=== PATIENT | male | born 1975 | race Caucasian/White ===

== ENCOUNTER 2019-11-06 12:25 | Emergency (ER) | payer OTHER, SELFPAY ==
[2019-11-06 12:39] VITALS: BP 134/85; PULSE 83; RESP 19; O2SAT 99; BMI 24.3
--- NOTE | 2019-11-06 12:44 | DI.RAD.S_ITS ---
1PROCEDURE: XR WRIST RT MIN 3V INDICATIONS: trauma to right wrist TECHNIQUE: 4 views of the wrist were acquired. COMPARISON: None. FINDINGS: Bones: No fractures or dislocations. No suspicious bony lesions. Scaphoid view: No navicular fractures are seen. Soft tissues: No suspicious soft tissue calcifications. IMPRESSION: No displaced fractures are seen. If there is snuffbox tenderness (or other clinical suspicion for a fracture not seen on these images) then a repeat examination would be recommended in 10 to 14 days, following splinting. Dictated by: Arthur Ardon M.D. on 11/06/2019 at 12:04 Approved by: Arthur Ardon M.D. on 11/06/2019 at 12:05
[2019-11-06 13:43] VITALS: TEMP 36.1
--- NOTE | 2019-11-06 13:46 | ED_ITS ---
HPI - Extremity Injury (Upper) General Chief Complaint: Extremity Injury, Upper Stated Complaint: Hurt Right Wrist Time Seen by Provider: 11/06/19 13:46 Source: patient Mode of arrival: Family Vehicle Limitations: no limitations History of Present Illness HPI narrative: Patient is a 44-year-old male who presents with right wrist pain. He was running down the [place] with kids when he ran into the door frame. He ini tially thought it was okay but pain worsened overnight. He has limited range of motion due to pain. He has taken some ibuprofen he denies any numbness or tingling. He is left-hand dominant MD complaint: injury to: right and wrist Onset (ago): hour(s) Related Data Allergies Allergy/AdvReac Type Severity Reaction Status Date / Time Penicillins Allergy Verified 11/06/19 12:43 Review of Systems Review of Systems Narrative: GENERAL: Denies chills,fever HEENT: Denies throat pain RESPIRATORY: Denies dyspnea, cough, wheezing CARDIOVASCULAR: Denies chest pain, palpitations GASTROINTESTINAL: Denies nausea, vomiting MUSCULOSKELETAL: See HPI SKIN: No rash, no laceration, no pruritus NEUROLOGIC: Denies weakness, dizziness, headache, numbness 8 point review of systems is negative except for those stated above and HPI Patient History Social History Smoking Status: Never smoker Smoking Status: Never smoker alcohol intake frequency: 0-2 drinks per day Substance Use Type: does not use Exam Initial Vital Signs Initial Vital Signs: Vital Signs Pulse Rate 83 11/06/19 12:39 Respiratory Rate 19 11/06/19 12:39 Blood Pressure 134/85 11/06/19 12:39 Pulse Oximetry 99 11/06/19 12:39 GENERAL: Well-appearing, well-nourished and in no acute distress. CARDIOVASCULAR: peripheral pulses in tact, cap refill <2 sec RESPIRATORY: No respiratory distress, speaks in full sentences without difficulty EXTREMITIES: Normal range of motion, no clubbing or edema. Neurovascularly intact. Right wrist mild swelling limited flexion extension able to make an okay sign good distal radial pulse NEUROLOGICAL: Cranial nerves II through XII grossly intact. Normal gait and speech. SKIN: Warm, dry, no petechiae, no rashes or lesions. Procedures Orthopedic Splinting/Casting Injury #1: Side: right Upper Extremity Injury Location: wrist Upper Extremity Immobilizer: thumb spica Post splinting neuro exam: intact Post splinting vascular exam: intact Placed by: Nursing Course Orders Ordered: ED Orders 11/06/19 12:44 XR wrist RT min 3V Stat Discontinued Medications Ibuprofen (Advil) 800 mg PO NOW ONE Stop: 11/06/19 14:01 Last Admin: 11/06/19 14:27 Dose: 800 mg Documented by: BERTO Vital Signs Vital signs: Vital Signs - 8 hr 11/06/19 12:39 11/06/19 13:43 11/06/19 14:36 Temperature 97.0 F L Pulse Rate 83 86 Respiratory Rate 19 18 Blood Pressure 134/85 120/75 Pulse Oximetry 99 98 MDM - Extremity Injury (Upper) Imaging Data Extremity x-ray #1: Radiologist's Impression: 1PROCEDURE: XR WRIST RT MIN 3V INDICATIONS: trauma to right wrist TECHNIQUE: 4 views of the wrist were acquired. COMPARISON: None. FINDINGS: Bones: No fractures or dislocations. No suspicious bony lesions. Scaphoid view: No navicular fractures are seen. Soft tissues: No suspicious soft tissue calcifications. IMPRESSION: No displaced fractures are seen. If there is snuffbox tenderness (or other clinical suspicion for a fracture not seen on these images) then a repeat examination would be recommended in 10 to 14 days, following splinting. Dictated by: Arthur Ardon M.D. on 11/06/2019 at 12:04 Discharge Plan Departure Patient Disposition: Home Clinical Impression: Right wrist sprain Qualifiers: Encounter type: initial encounter Qualified Code(s): S63.501A - Unspecified sprain of right wrist, initial encounter Discharge Date/Time: 11/06/19 14:36 Instructions: Wrist Sprain Activity Restrictions/Additional Instructions: *You have been diagnosed with right wrist sprain *What to do: Wear brace as needed, elevate, ice *Continue to take medications as directed Na 100 mg every 8 hours if needed for pain or swelling with food *Follow up with your primary care provider in 2-3 days *Return to ER if you should have increased weakness, numbness tingling or any new, worsening or concerning symptoms Referrals: [facility] [Provider Group]
[2019-11-06] MEDS: IBUPROFEN 400 MG TABLET 800 MG PO (14:27)
[2019-11-06 14:36] VITALS: BP 120/75; PULSE 86; RESP 18; O2SAT 98
== END 2019-11-06 14:36 | disposition home or self-care (01) ==
PROVIDERS: Emergency Provider Emergency Medicine
DX: S63.501A Unspecified sprain of right wrist, initial encounter (principal); W22.01XA Walked into wall, initial encounter
CPT/HCPCS: 73110; 99283; 99284

== ENCOUNTER 2023-01-31 19:10 | Emergency (ER) | payer OTHER, SELFPAY ==
[2023-01-31] VITALS (14 sets, daily range): BP systolic 86–122; BP diastolic 50–75; PULSE 57–87; RESP 17–18; TEMP 37.1; O2SAT 91–99; BMI 25.7
--- NOTE | 2023-01-31 19:19 | DI.RAD.S_ITS ---
PROCEDURE: XR CHEST 1V INDICATIONS: chest pain TECHNIQUE: One view of the chest was acquired. COMPARISON: None. FINDINGS: Surgical changes and devices: None. Lungs and pleura: Lungs are clear. No pleural effusions or pneumothorax. Mediastinum: Mediastinal contours appear normal. Heart size is normal. Bones and chest wall: No suspicious bony lesions. Overlying soft tissues appear unremarkable. IMPRESSION: No acute cardiopulmonary abnormality is seen. Dictated by: Arthur Ardon M.D. on 01/31/2023 at 18:54 Approved by: Arthur Ardon M.D. on 01/31/2023 at 18:54
[2023-01-31] MEDS: ASPIRIN 81 MG CHEW TAB 324 MG PO (19:33)
[2023-01-31 19:47] LABS: INR 1.1 (0.9-1.3); Prothrombin Time 12.4 SECONDS (9.4-12.5)
[2023-01-31 19:48] LABS: Add Manual Diff / Slide Review NO; Basophils Absolute Auto 0 /uL (0-100); Basophils Percent Auto 0.4 % (0-2); Eosinophils Absolute Auto 0 /uL (0-450); Eosinophils Percent Auto 0.3 % (2-4); Hematocrit 44.1 % (41-53); Hemoglobin 15.2 g/dL (13.5-17.5); Lymphocytes Absolute Auto 1200 /uL (1100-4500); Lymphocytes Percent Auto 17.4 % (25-40); Mean Corpuscular HGB Conc 34.4 % (30-36); Mean Corpuscular Hemoglobin 30.5 PG (26-34); Mean Corpuscular Volume 88.5 fL (80-100); Monocytes Absolute Auto 900 /uL (0-900); Monocytes Percent Auto 13.7 % (3-14); Neutrophils Absolute Auto 4700 /uL (1500-7000); Neutrophils Percent Auto 68.2 % (50-75); Platelet Count 208 X10^3/uL (150-400); Red Blood Cell Count 4.98 X10^6/uL (4.5-5.9); Red Cell Distribution Width 13.5 % (11.6-14.8); White Blood Cell Count 6.9 X10^3/uL (4.5-11.0)
[2023-01-31 19:50] LABS: PTT Partial Thromboplastin Tim 31 SECONDS (25.1-36.5)
[2023-01-31 20:01] LABS: Alanine Aminotransferase 27 IU/L (<50); Albumin 4.4 g/dL (3.5-5.0); Albumin Globulin Ratio 1.3 (1.0-2.8); Alkaline Phosphatase 48 U/L (38-126); Aspartate Aminotransferase 32 IU/L (17-59); BUN Creatinine Ratio 12.4 (6-22); Bilirubin Total 0.7 mg/dL (0.2-1.3); Blood Urea Nitrogen 14 mg/dL (9-20); Calcium 10.3 mg/dL (8.4-10.2); Carbon Dioxide 31 mmol/L (22-32); Chloride 100 mmol/L (98-107); Creatine Kinase 78 U/L (55-170); Estimated Glomerular Filt Rate > 60 mL/min (>60); Globulin 3.5 g/dL (1.7-4.1); Glucose 91 mg/dL (70-100); HEMOLYSIS < 15 (0-50); Lipase 144 U/L (23-300); Magnesium 2.2 mg/dL (1.6-2.3); Potassium 4.3 mmol/L (3.4-5.1); Sodium 137 mmol/L (137-145); Total Protein 7.9 g/dL (6.3-8.2)
--- NOTE | 2023-01-31 20:03 | ED_ITS ---
HPI - Chest Pain General Chief Complaint: Chest Pain Stated Complaint: chest pressure/pain/back and head pain Time Seen by Provider: 01/31/23 19:50 Source: patient Mode of arrival: Ambulatory Limitations: no limitations History of Present Illness HPI narrative: 47-year-old gentleman with insomnia who presents with acute central chest pain that started at 5:00 p.m. today while he was sitting at his desk. He noted pain across the upper portion of his back over the last 48 hours. It hurts to take a deep breath, he is not complaining of dyspnea, he has been cold but not diaphoretic. No abdominal pain, nausea, vomiting or diarrhea. He is never had similar pain. He does not describe any recent respiratory or viral type symptoms but does notice that a cough was starting as of yesterday. He tried some ibuprofen for the upper back pain yesterday and found that it was not effective. Related Data Previous Rx's Medication Instructions Recorded oxycodone-acetaminophen 5 mg-325 1 tab PO Q6H PRN pain #10 tabs 01/31/23 mg tablet Allergies Allergy/AdvReac Type Severity Reaction Status Date / Time Penicillins Allergy Verified 11/06/19 12:43 Review of Systems Review of Systems Narrative: Pertinent positive and negative findings as per HPI Patient History Medical History (Updated 01/31/23 @ 23:25 by Marilu Gan MD) Insomnia Hypertension Social History Smoking Status: Never smoker Smoking Status: Never smoker alcohol intake frequency: holidays/special occasions only Substance Use Type: does not use Exam Initial Vital Signs Initial Vital Signs: Vital Signs Temperature 98.7 F 01/31/23 19:12 Pulse Rate 87 01/31/23 19:12 Respiratory Rate 18 01/31/23 19:12 Blood Pressure 116/69 01/31/23 19:12 Pulse Oximetry 99 01/31/23 19:12 Oxygen Delivery Method Room Air 01/31/23 19:12 General: Healthy appearing, slight pain behavior with deep breathing. Able to give a complete and coherent history. Well-nourished well-developed HEENT: Moist mucous membranes, normal sclera with reactive pupils, no cervical adenopathy Neck: No JVD, supple Respiratory: Lungs are clear to auscultation, he does have some mild splinting bilaterally secondary to pain but otherwise Full and symmetrical air movement Chest: Significant tenderness along costochondral margins bilaterally. No reproducible chest pain with palpation along the thoracic spine or posterior ribcage. Cardiac: Regular rate and rhythm no murmurs no bruits Abdomen: Soft, nontender, good bowel tones, no flank pain Skin: Warm and dry, no rashes Neurologic: Grossly neurologically intact with no obvious asymmetries or abnormalities Extremities: No trauma, well perfused Psych: Cooperative, appropriate insight and affect Course Orders Ordered: ED Orders 01/31/23 19:19 XR chest 1V Stat EKG-12 Lead Stat 01/31/23 19:22 Covid-19 + FLU A/B + RSV - PCR Stat 01/31/23 19:28 Complete Blood Count AUTO DIFF Stat Comprehensive Metabolic Panel Stat Lipase Stat Magnesium Stat PTT Partial Thromboplastin Sincere Stat Prothrombin Time INR Stat Troponin & CK Cardiac Panel Stat 01/31/23 20:59 Trop I [Troponin I] Stat Discontinued Medications Aspirin (Aspirin 81 Mg Chew Tab) 324 mg PO NOW ONE Stop: 01/31/23 19:20 Last Admin: 01/31/23 19:33 Dose: 324 mg Documented By: CARI Ketorolac Tromethamine (Ketorolac 30 Mg/Ml Vial) 15 mg IV NOW ONE Stop: 01/31/23 20:26 Last Admin: 01/31/23 20:34 Dose: 15 mg Documented By: CARI Oxycodone/Acetaminophen (Oxycodone/Acetaminophen 5/325 Tablet) 1 tab PO NOW ONE Stop: 01/31/23 20:26 Last Admin: 01/31/23 20:32 Dose: 1 tab Documented By: CARI Vital Signs Vital signs: Vital Signs - 8 hr 01/31/23 19:12 01/31/23 19:20 01/31/23 19:21 Temperature 98.7 F Pulse Rate 87 74 Respiratory Rate 18 Blood Pressure 116/69 122/75 Pulse Oximetry 99 96 Oxygen Delivery Method Room Air 01/31/23 19:21 01/31/23 19:30 01/31/23 19:30 Temperature Pulse Rate 76 79 Respiratory Rate Blood Pressure 120/63 Pulse Oximetry 97 97 Oxygen Delivery Method 01/31/23 20:00 01/31/23 20:00 01/31/23 20:30 Temperature Pulse Rate 71 69 Respiratory Rate Blood Pressure 103/62 Pulse Oximetry 96 95 Oxygen Delivery Method 01/31/23 20:30 01/31/23 21:00 01/31/23 21:00 Temperature Pulse Rate 69 Respiratory Rate Blood Pressure 100/61 102/58 L Pulse Oximetry 96 Oxygen Delivery Method 01/31/23 21:30 01/31/23 21:30 01/31/23 22:00 Temperature Pulse Rate 61 57 L Respiratory Rate 17 Blood Pressure 102/57 L Pulse Oximetry 94 95 Oxygen Delivery Method 01/31/23 22:00 01/31/23 22:30 01/31/23 22:30 Temperature Pulse Rate 58 L Respiratory Rate Blood Pressure 94/50 L 94/54 L Pulse Oximetry 95 Oxygen Delivery Method MDM - Chest Pain Lab Data 01/31/23 19:28 01/31/23 19:28 Labs: Lab Results 01/31/23 01/31/23 01/31/23 Range/Units 19:22 19:28 20:59 WBC 6.9 (4.5-11.0) X10^3/uL RBC 4.98 (4.5-5.9) X10^6/uL Hgb 15.2 (13.5-17.5) g/dL Hct 44.1 (41-53) % MCV 88.5 (80-100) fL MCH 30.5 (26-34) PG MCHC 34.4 (30-36) % RDW 13.5 (11.6-14.8) % Plt Count 208 (150-400) X10^3/uL Neut % (Auto) 68.2 (50-75) % Lymph % (Auto) 17.4 L (25-40) % Knott % (Auto) 13.7 (3-14) % Eos % (Auto) 0.3 L (2-4) % Baso % (Auto) 0.4 (0-2) % Neut # (Auto) 4700 (3457-0153) /uL Lymph # (Auto) 1200 (6785-6128) /uL Knott # (Auto) 900 (0-900) /uL Eos # (Auto) 0 (0-450) /uL Baso # (Auto) 0 (0-100) /uL PT 12.4 (9.4-12.5) SECONDS INR 1.1 (0.9-1.3) APTT 31 (25.1-36.5) SECONDS Sodium 137 (137-145) mmol/L Potassium 4.3 (3.4-5.1) mmol/L Chloride 100 (98-107) mmol/L Carbon Dioxide 31 (22-32) mmol/L BUN 14 (9-20) mg/dL Creatinine 1.13 (0.66-1.25) mg/dL Estimated GFR > 60 (>60) mL/min BUN/Creatinine Ratio 12.4 (6-22) Glucose 91 (70-100) mg/dL Calcium 10.3 H (8.4-10.2) mg/dL Magnesium 2.2 (1.6-2.3) mg/dL Total Bilirubin 0.7 (0.2-1.3) mg/dL AST 32 (17-59) IU/L ALT 27 (<50) IU/L Alkaline Phosphatase 48 (38-126) U/L Total Creatine Kinase 78 (55-170) U/L Troponin I < 0.012 < 0.012 (0.01-0.034) ng/mL Total Protein 7.9 (6.3-8.2) g/dL Albumin 4.4 (3.5-5.0) g/dL Globulin 3.5 (1.7-4.1) g/dL Albumin/Globulin Ratio 1.3 (1.0-2.8) Lipase 144 (23-300) U/L SARS-CoV-2 (PCR) Negative (Negative) Influenza A (RT-PCR) Flu a negative (NEGATIVE) Influenza B (RT-PCR) Flu b negative (NEGATIVE) RSV (PCR) Negative (Negative) [facility] Narrative Medical decision making narrative: CC: Central chest pain Complicating co-morbidities: Hypertension, insomnia Data collected from: patient , partner Medical records reviewed: No medical records are available Differential considered: Acute coronary syndrome, viral syndrome, dissection, pneumothorax, costochondritis, pleurisy Exam documented above, pertinent findings include: Lungs are completely clear. He has tenderness along costochondral margins completely reproduces his pain Lab Test results independently reviewed as above. Pertinent findings: CBC is unremarkable Coagulation studies are unremarkable Chemistries are notable for a calcium slightly elevated at 10.3 otherwise normal renal function electrolytes and liver studies Lipase is reassuring at 1:44 a.m. Serology is negative for influenza, COVID and RSV Independently reviewed EKG: Sinus rhythm at a rate of 76. Normal intervals, normal axis, no acute ischemic changes Imaging studies independently reviewed: Chest x-ray shows a long torso, unremarkable cardiac silhouette, no pneumothorax, no widened mediastinum and no infiltrates. Treatments: Aspirin given on arrival. After labs return and he is still hurting he is given Toradol and a single Percocet. Re-evaluations: After single oxycodone and IV Toradol pain has completely resolved Discussion: 47-year-old gentleman with pleuritic chest pain across his upper back for the last 48 hours and today with sternal pain that is completely reproducible with palpation consistent with costochondritis. With the slight cough that he have I suspect that this is viral related. There was no evidence of acute coronary syndrome, pneumothorax, pulmonary embolus or alternate life- threatening abnormality that would require additional imaging or hospitalization at this time. We discussed use of ibuprofen and he is given a brief course of Percocet to use for severe pain control. He is safe for home discharge. Discharge Plan Departure Patient Disposition: Home Clinical Impression: Acute pleurisy without pleural effusion, Acute costochondritis Instructions: DI for Costochondritis, DI for Pleurisy Activity Restrictions/Additional Instructions: Thank you for coming in today Your workup was very reassuring. I did not find any life-threatening abnormalities. Specifically, I did not find evidence of heart attack, dissection, collapsed lung, pneumonia. Based on your clinical exam and this description of your pain I believe that you have pleurisy which is inflammation around the lining of your lungs typically related to a viral infection and costochondritis. This is inflammation in the joints where your ribs jammer hooker to your breastbone. The treatment for both of these is ibuprofen. I typically recommend 400 mg of ibuprofen and 1 Tylenol every 6 hours. For severe pain you can use 400 mg of ibuprofen and 1 Percocet. Percocet is a narcotic which will make you constipated. You should not work or drive while taking Percocet. I would expect that you will have symptoms for approximately a week and they should get gradually better over the course of that week. If you develop new or different findings or find that the symptoms were getting worse, it would be appropriate to come back to the ER Prescriptions: New oxycodone-acetaminophen 5-325 mg tablet 1 tab PO Q6H PRN (Reason: pain) Qty: 10 0RF Stand Alone Forms: Patient Portal/API
[2023-01-31 20:12] LABS: Troponin I < 0.012 ng/mL (0.01-0.034)
[2023-01-31 20:15] LABS: Influenza A - CEPHEID Flu A NEGATIVE (NEGATIVE); Influenza B - CEPHEID Flu B NEGATIVE (NEGATIVE); Respiratory Syncytial Virus Negative (Negative)
[2023-01-31 20:29] LABS: COVID-19 CEPHEID 4-PLEX PCR Negative (Negative)
[2023-01-31] MEDS: OXYCODONE/ACETAMINOPHEN 5/325 TABLET 1 TAB PO (20:32)
[2023-01-31] MEDS: KETOROLAC 30 MG/ML VIAL 15 MG IV (20:34)
[2023-01-31 21:36] LABS: Troponin I < 0.012 ng/mL (0.01-0.034)
[2023-01-31] MEDS: OXYCODONE/APAP 5/325 PREPACK 1 BOTTLE MISC (23:32)
== END 2023-01-31 23:42 | disposition home or self-care (01) ==
PROVIDERS: Emergency Provider Emergency Medicine
DX: R09.1 Pleurisy (principal); M94.0 Chondrocostal junction syndrome [Tietze]; Z20.822 Contact with and (suspected) exposure to COVID-19
CPT/HCPCS: 0241U; 36415; 71045; 80053; 82550; 83690; 83735; 84484; 85025; 85610; 85730; 93005; 93010; 96374; 99284; J1885

== ENCOUNTER 2023-07-02 20:11 | Emergency (ER) | payer OTHER, SELFPAY ==
[2023-07-02] VITALS (7 sets, daily range): BP systolic 96–127; BP diastolic 56–67; PULSE 64–75; RESP 16; O2SAT 95–97; BMI 157.4
--- NOTE | 2023-07-02 20:24 | ED_ITS ---
HPI - General Adult General Chief complaint: Trauma Stated complaint: blanket cutter hand to R ribs Time Seen by Provider: 07/02/23 20:12 Source: patient Mode of arrival: EMS Limitations: no limitations History of Present Illness HPI narrative: Patient is a 47-year-old male who is brought in by EMS for evaluation of injuries that he sustained while at work. Patient states he was using a large bulky cutter with another individual to remove a lock when he stated that the bone cutter slipped and he was hit on the right side of his chest with the long arm of the pie cutter. He states that he felt and heard a pop. Since that time he has had discomfort with touching the area and breathing. No abdominal pain. No interventions prior to arrival. Related Data Previous Rx's Medication Instructions Recorded oxycodone-acetaminophen 5 mg-325 1 tab PO Q6H PRN pain #10 tabs 01/31/23 mg tablet hydrocodone 5 mg-acetaminophen 325 1 tab PO Q4-6H PRN pain #10 tabs 07/02/23 mg tablet Allergies Allergy/AdvReac Type Severity Reaction Status Date / Time Penicillins Allergy Verified 11/06/19 12:43 Review of Systems Constitutional Constitutional: Reports system reviewed and no additional complaints, except as documented Cardiovascular Cardiovascular: Reports system reviewed and no additional complaints, except as documented Respiratory Respiratory: Reports system reviewed and no additional complaints, except as documented Gastrointestinal Gastrointestinal: Reports system reviewed and no additional complaints, except as documented Integumentary/Breasts Skin/Breast: Reports system reviewed and no additional complaints, except as d ocumented Patient History Medical History Insomnia Hypertension Social History Smoking Status: Never smoker Smoking Status: Never smoker alcohol intake frequency: holidays/special occasions only Substance Use Type: does not use Exam Initial Vital Signs Initial Vital Signs: Vital Signs Pulse Rate 75 07/02/23 20:15 Respiratory Rate 16 07/02/23 20:15 Blood Pressure 127/67 07/02/23 20:15 Pulse Oximetry 97 07/02/23 20:15 Oxygen Delivery Method Room Air 07/02/23 20:15 HENMI Head: normal to inspection and normocephalic Chest Chest: No crepitus and tenderness (Right-sided anterior lower chest discomfort) Resp Effort & Inspection: normal respiratory effort Skin General: no rashes or lesions noted Neuro General: patient alert and patient awake Course Orders Ordered: ED Orders 07/02/23 20:24 XR ribs RT min 3V w CXR1V Stat Discontinued Medications Hydrocodone Bitart/Acetaminophen (Hydrocodone/Acet 5/325 Prepack) 1 bottle MISC DIRECTED ONE Stop: 07/02/23 22:18 Last Admin: 07/02/23 22:29 Dose: 1 bottle Documented By: ARCELIA Hydromorphone HCl (Hydromorphone 1 Mg Inj) 1 mg IM NOW ONE Stop: 07/02/23 20:25 Last Admin: 07/02/23 20:36 Dose: 1 mg Documented By: ARCELIA Vital Signs Vital signs: Vital Signs - 8 hr 07/02/23 20:15 07/02/23 20:49 07/02/23 21:00 Pulse Rate 75 68 70 Respiratory Rate 16 Blood Pressure 127/67 Pulse Oximetry 97 97 96 Oxygen Delivery Method Room Air Oxygen Flow Rate Fraction of Inspired Oxygen 07/02/23 21:30 07/02/23 22:00 07/02/23 22:30 Pulse Rate 69 69 64 Respiratory Rate Blood Pressure Pulse Oximetry 96 96 95 Oxygen Delivery Method Oxygen Flow Rate Fraction of Inspired Oxygen 07/02/23 22:31 07/02/23 22:35 07/02/23 22:35 Pulse Rate 65 Respiratory Rate Blood Pressure 96/56 L Pulse Oximetry 95 Oxygen Delivery Method Room Air Oxygen Flow Rate 0 Fraction of Inspired Oxygen 21 Medical Decision Making Imaging Data rib x-ray: Radiologist's Impression: PROCEDURE: XR RIBS RT MIN 3V W CXR 1V INDICATIONS: R anterior lower rib pain TECHNIQUE: 2 views of the ribs were acquired, along with a single view chest. COMPARISON: None. FINDINGS: Surgical changes and devices: None. Bones and chest wall: No fractures or dislocations. No suspicious bony lesion s. Overlying soft tissues appear unremarkable. Lungs and pleura: No pleural effusions or pneumothorax. Lungs appear clear. Mediastinum: Mediastinal contours appear normal. Heart size is normal. IMPRESSION: No displaced rib fracture or pneumothorax. MDM Narrative Medical decision making narrative: Rib x-ray show no displaced rib fractures although I discussed with the patient there was a potential nondisplaced rib fracture. No pneumothorax. He has no abdominal tenderness. Lungs are clear. Not hypoxic. No skin changes over the area. We discussed the possibility of an occult fracture versus rib contusion. We discussed the importance of proper breathing. Discussed return precautions. Will send home with pain medication. Sent home with incentive spirometer. He was given return precautions. He expressed understanding and agreement. Discharge Plan Departure Patient Disposition: Home Clinical Impression: Contusion of rib on right side Instructions: DI for Rib Contusion Activity Restrictions/Additional Instructions: Use the pain medication has needed. Be sure that you were using the incentive spirometer has directed. Also contact your medical department for a follow-up. Return to the emergency department for new symptoms. Prescriptions: New hydrocodone-acetaminophen 5-325 mg tablet 1 tab PO Q4-6H PRN (Reason: pain) Qty: 10 0RF No Action oxycodone-acetaminophen 5-325 mg tablet 1 tab PO Q6H PRN (Reason: pain) Qty: 10 0RF Referrals: [facility] [Primary Care Provider] - Stand Alone Forms: Patient Portal/API, Work Release Note
--- NOTE | 2023-07-02 20:24 | DI.RAD.S_ITS ---
PROCEDURE: XR RIBS RT MIN 3V W CXR 1V INDICATIONS: R anterior lower rib pain TECHNIQUE: 2 views of the ribs were acquired, along with a single view chest. COMPARISON: None. FINDINGS: Surgical changes and devices: None. Bones and chest wall: No fractures or dislocations. No suspicious bony lesions. Overlying soft tissues appear unremarkable. Lungs and pleura: No pleural effusions or pneumothorax. Lungs appear clear. Mediastinum: Mediastinal contours appear normal. Heart size is normal. IMPRESSION: No displaced rib fracture or pneumothorax. Dictated by: Flaquita Benitez M.D. on 07/02/2023 at 21:36 Approved by: Flaquita Benitez M.D. on 07/02/2023 at 21:37
[2023-07-02] MEDS: HYDROMORPHONE 1 MG INJ IM (20:36)
[2023-07-02] MEDS: HYDROCODONE/ACET 5/325 PREPACK 1 BOTTLE MISC (22:29)
== END 2023-07-02 22:46 | disposition home or self-care (01) ==
PROVIDERS: Emergency Provider Emergency Medicine
DX: S20.211A Contusion of right front wall of thorax, initial encounter (principal); W22.8XXA Striking against or struck by other objects, initial encounter; Y93.89 Activity, other specified
CPT/HCPCS: 71101; 96372; 99283; J1170